=== PATIENT | female | born 1965 | race Caucasian/White ===

== ENCOUNTER → 2017-03-04 | Outpatient (CLI) | payer BC ==
[~2017-03-04] MED LIST: BACL10TA PO; BENZ-13 PO; CEFD300C3 PO; HYDR-1231 PO; LORA1TAB59 PO; MELO-198 PO; METH4TAB PO; SULF-222 PO; TIZA4TAB55 PO; TRIA10.8 NSEACH
--- NOTE | 2017-03-04 13:15 | Diagnostic Imaging Report ---
PROCEDURE: MRI left upper extremity without contrast. TECHNIQUE: Multiplanar, multisequence non contrast-enhanced MRI of the left upper extremity was accomplished. INDICATION: Left shoulder pain. FINDINGS: There is no os acromiale or Hill-Sachs deformity. The acromioclavicular joint demonstrates hypertrophy with inferior osteophytes that have an impression upon the myotendinous junction of the supraspinatus. There is also a mild intrasubstance tear at this level. The distal supraspinatus and infraspinatus tendons demonstrate high-grade intrasubstance and bursal side partial tears. There is no full-thickness or retracted tear seen. The long head of biceps is within its groove. The subscapular tendon appears unremarkable. There is small amount of fluid in the subacromial subdeltoid bursa. The muscle bulk and signal around the shoulder is normal. The glenoid labrum appears grossly unremarkable on this exam without intra-articular contrast. IMPRESSION: There is acromioclavicular osteoarthritis with inferior osteophytes that have an impression upon the underlying myotendinous junction of the supraspinatus. There is intrasubstance increased signal at this level of the tendon suggestive of partial tear. In addition high-grade partial tears of the distal supraspinatus and infraspinatus tendons are noted. Dictated by: Dictated on workstation # [id number]
== END ==
LOC: RAD 11:30
PROVIDERS: ATTEND Orthopaedic Surgery
DX: M75.102 Unspecified rotator cuff tear or rupture of left shoulder, not specified as traumatic (principal); M19.012 Primary osteoarthritis, left shoulder
CPT/HCPCS: 73221

== ENCOUNTER → 2018-02-03 | Outpatient (CLI) | payer BC ==
--- NOTE | 2018-02-03 12:06 | Diagnostic Imaging Report ---
PATIENT HISTORY: LUMBAR BACK PAIN. TECHNIQUE: Three views of the lumbar spine. COMPARISON: 10/14/2013 MRI. FINDINGS: There is mild left convex curvature of the lumbar spine. There is transitional anatomy of the lumbosacral junction with sacralization of L5. The bilateral sacroiliac joints appear patent. There is trace retrolisthesis at L1-L2 and L2-L3. There is minimal anterolisthesis of L3-L4. Mild degenerative changes are seen at multiple levels in the lumbar spine and lower thoracic spine. There is mild facet arthropathy in the lower lumbar spine. Vertebral body heights are preserved. No acute fractures seen. IMPRESSION: 1. No acute fracture is seen in the lumbar spine. 2. Degenerative changes in the lumbar spine with sacralization of the L5 vertebral body. Dictated by: Dictated on workstation # [id number]
== END ==
LOC: WSo 10:56
PROVIDERS: ATTEND Nurse Practitioner Family
DX: M47.816 Spondylosis without myelopathy or radiculopathy, lumbar region (principal)
CPT/HCPCS: 72100

== ENCOUNTER → 2018-02-17 | Outpatient (CLI) | payer BC ==
--- NOTE | 2018-02-17 11:01 | Diagnostic Imaging Report ---
PROCEDURE: MRI lumbar spine. TECHNIQUE: Multiplanar, multisequence MRI of the lumbar spine was performed without contrast. INDICATION: Low back pain and right leg pain with burning and numbness in the right lower extremity. Comparison is made with prior MRI of the lumbar spine from 10/14/2013. There is left convexity lumbar scoliotic curvature. Numbering of the lumbar spine will be similar to the MRI from 10/14/2013. Patient appears to have sacralization of the L5 vertebral body. There is a rudimentary disc at the L5-S1 level. The vertebral body heights are maintained. No acute compression fracture is detected. No geographic marrow lesion is seen. Generalized degenerative disc disease with variable disc space narrowing and desiccation is noted. Conus is unremarkable at the L1 level. T12-L1: No central canal or neuroforaminal stenosis is identified. L1-2: There is a small midline disc bulge but no resultant central canal stenosis is detected. There is ligamentous thickening and facet changes present. There is moderate bilateral neuroforaminal narrowing. L2-3: Ligamentous thickening and facet changes are noted. Central canal is patent. There does appear to be moderate right and mild left neuroforaminal stenosis due to a broad-based disc/osteophyte complex. L3-4: There is ligamentous thickening and facet changes resulting in moderate trefoil stenosis to the canal. Previously noted synovial cyst is no longer visualized. There is significant left and moderate right neuroforaminal stenosis. L4-5: Hypertrophic facet changes are noted. There is broad-based disc/osteophyte complex narrowing the left lateral recess and producing moderate left neuroforaminal stenosis. Central canal and right neural foramen is patent. No axial imaging was obtained through the L5-S1 level but central canal and neural foramina appear to be patent on the sagittal sequences. IMPRESSION: Multilevel lumbar spondylosis and scoliosis with multilevel central canal, lateral recess and neuroforaminal stenoses described level by level above. Previously noted synovial cyst at L3-4 is no longer visualized. Again, please note the numbering system of the lumbar spine is similar to the exam from 10/14/2013 with sacralization of L5. Dictated by: Dictated on workstation # [id number]
== END ==
LOC: RAD 09:03
PROVIDERS: ATTEND Nurse Practitioner Family
DX: M51.26 Other intervertebral disc displacement, lumbar region (principal); M41.86 Other forms of scoliosis, lumbar region; M47.816 Spondylosis without myelopathy or radiculopathy, lumbar region; M99.73 Connective tissue and disc stenosis of intervertebral foramina of lumbar region
CPT/HCPCS: 72148